=== PATIENT | male | born 1995 | race Hispanic/Latino ===

== ENCOUNTER 2022-01-08 20:47 | Emergency (ER) | payer BC ==
[~2022-01-08] VITALS: Ht 167.6 cm; Wt 53.1 kg
[2022-01-08] MEDS ORDERED: OMEPRAZOLE40 MG PO (21:13)
[2022-01-08] MEDS ORDERED: HYDROXYZINE HCL25 MG PO (21:13)
== END 2022-01-08 22:00 | disposition home or self-care (01) ==
LOC: FSED 20:51
DX: R00.2 Palpitations (principal); K21.9 Gastro-esophageal reflux disease without esophagitis; F41.9 Anxiety disorder, unspecified
CPT/HCPCS: 93005; 99283